=== PATIENT | male | born 1970 | race Two or more races ===

== ENCOUNTER → 2017-04-25 | Outpatient (CLI) | payer OTHER ==
[~2017-04-25] VITALS: Ht 152.4 cm; Wt 74.4 kg
[~2017-04-25] MED LIST: ENALAPRIL MALE2.5 MG; METFORMIN HYDR100 GM
== END | disposition home or self-care (01) ==
LOC: PPHC 09:28
DX: R05 Cough (principal); R09.81 Nasal congestion

== ENCOUNTER 2018-03-03 18:24 | Emergency (ER) | payer OTHER ==
[~2018-03-03] VITALS: Ht 167.6 cm; Wt 73.9 kg
[2018-03-03] MEDS ORDERED: CLONAZEPAM1 MG (19:03)
== END 2018-03-04 00:05 | disposition home or self-care (01) ==
LOC: ER 18:24
DX: R07.89 Other chest pain (principal)
CPT/HCPCS: 93005; G0379; G0378

== ENCOUNTER 2019-01-21 07:50 | Outpatient (CLI) | payer OTHER ==
[~2019-01-21 07:50] MED LIST changes: +CLONAZEPAM1 MG; +NAPR500T14 PO; +NORFLEX100MG PO
== END 2019-01-21 08:08 | disposition home or self-care (01) ==
LOC: RAD 07:50 → MRI 08:15
DX: K76.0 Fatty (change of) liver, not elsewhere classified (principal); R16.0 Hepatomegaly, not elsewhere classified
CPT/HCPCS: 72148

== ENCOUNTER 2020-11-16 09:47 | Outpatient (CLI) | payer OTHER | END 2020-11-16 09:52 | disposition home or self-care (01) | LOC: MRI 09:47 → TOM 09:47 | DX: R10.84 Generalized abdominal pain (principal); N20.1 Calculus of ureter ==

== ENCOUNTER 2020-12-20 11:45 | Outpatient (CLI) | payer OTHER | END 2020-12-20 11:53 | disposition home or self-care (01) | LOC: MRI 11:45 | PROVIDERS: ATTEND Physical Medicine & Rehabilitation | DX: M54.5 Low back pain (principal); M48.061 Spinal stenosis, lumbar region without neurogenic claudication | CPT/HCPCS: 72148 ==

== ENCOUNTER 2023-02-19 13:02 | Outpatient (CLI) | payer OTHER | END 2023-02-19 13:08 | disposition home or self-care (01) | LOC: NUCLEAR 13:02 | PROVIDERS: ATTEND Internal Medicine | DX: M50.30 Other cervical disc degeneration, unspecified cervical region (principal); M51.36 Other intervertebral disc degeneration, lumbar region ==

== ENCOUNTER 2025-01-06 08:18 | Outpatient (CLI) | payer OTHER ==
[~2025-01-06 08:18] MED LIST changes: +GABAPENTIN300 M2 PO; +NABUMETONE750 MG PO
== END 2025-01-06 08:28 | disposition home or self-care (01) ==
LOC: SONOGRAMA 08:18
PROVIDERS: ATTEND Internal Medicine Gastroenterology
DX: R16.0 Hepatomegaly, not elsewhere classified (principal)